=== PATIENT | female | born 1950 | race Hispanic/Latino ===

== ENCOUNTER 2020-08-03 15:52 | Inpatient (IN) | payer OTHER ==
[~2020-08-03] VITALS: Ht 157.5 cm; Wt 102.5 kg
[2020-08-03 16:18] LABS: ABG BASE EXCESS -3.2 mmol/L (-2.0-3.0); ABG HCO3 19.7 mmol/L (21.0-28.0); ABG OXYGEN SATURATION 74.4 % (95.0-99.0); ABG PCO2 30 mmHg (32-45)
[2020-08-03 16:28] LABS: BASOPHILS % (AUTO) 0.3 % (0.0-5.0); HEMATOCRIT 34.4 % (36-48); LYMPHOCYTES % (AUTO) 5.5 % (21.0-51.0); MEAN CORPUSCULAR HGB CONC 31.1 g/dL (32.0-36.0); MEAN CORPUSCULAR VOLUME 83.5 fL (79-99); MONOCYTES % (AUTO) 5.8 % (3.0-13.0); NEUTROPHILS % (AUTO) 87.8 % (40.0-77.0); PLATELET COUNT (AUTO) 271 K/uL (130-400); RED BLOOD CELL COUNT(AUTO) 4.12 MIL/uL (4.00-5.50); RED CELL DISTRIBUTION WIDTH 15.7 % (11.0-15.5); WHITE BLOOD COUNT (AUTO) 13.6 K/uL (4.8-10.8)
[2020-08-03 16:42] LABS: PROTHROMBIN TIME 10.7 SEC (9.6-11.6)
[2020-08-03 16:43] LABS: PARTIAL THROMBOPLASTIN TIME 26.4 SEC (26.3-35.5)
[2020-08-03 17:06] LABS: ALBUMIN 3.2 g/dL (3.5-5.0); CREATININE 1.1 mg/dL (0.5-1.5); POTASSIUM 4.2 mmol/L (3.5-5.1); TOTAL PROTEIN, SERUM 8.1 g/dL (6.0-8.3)
[2020-08-03 17:09] LABS: TROPONIN I 0.94 ng/mL (0.00-0.06)
[2020-08-03 17:49] LABS: ERYTHROCYTE SEDIMENTATION RATE 95 MM/HR (0-30)
[2020-08-03] MEDS ORDERED: FUROSEMIDE 10 MG/ML 2ML VIAL ONE (18:17)
[2020-08-03] MEDS ORDERED: INSULIN HUMULIN R 100 UNIT/ML 3ML ONE (18:18)
[2020-08-03] MEDS ORDERED: AZITHROMYCIN 500MG+NS 250ML 250 ML IV ONE (19:10)
[2020-08-03] MEDS ORDERED: CEFTRIAXONE SODIUM 1 GM ONE (19:10)
[2020-08-03 19:22] LABS: APPEARANCE,URINE Clear (CLEAR); BILIRUBIN,URINE Negative (NEGATIVE); COLOR,URINE Yellow (YELLOW); GLUCOSE, URINE (UA) >=1000 mg/dL (NEGATIVE); KETONES,URINE 40 mg/dL (NEGATIVE); LEUKOCYTE ESTERASE ,URINE Negative (NEGATIVE); NITRATE,URINE Negative (NEGATIVE); OCCULT BLOOD,URINE Trace (NEGATIVE); PROTEIN,URINE POS 2+ mg/dL (NEGATIVE); UROBILINOGEN,URINE 0.2 mg/dL (0.2-1.0)
[2020-08-03 19:31] LABS: BACTERIA,URINE Few /HPF (None Seen); RBC,URINE 0-1 /HPF (0-1); SQUAMOUS EPITHELIAL CELL,UR Few /HPF (0-2); WBC,URINE 0-1 /HPF (0-1)
[2020-08-03 23:50] LABS: TROPONIN I 1.15 ng/mL (0.00-0.06)
[2020-08-04 07:42] LABS: BASOPHILS % (AUTO) 0.4 % (0.0-5.0); EOSINOPHILS % (AUTO) 2.1 % (0.0-8.0); HEMATOCRIT 30.7 % (36-48); LYMPHOCYTES % (AUTO) 8.5 % (21.0-51.0); MEAN CORPUSCULAR HEMOGLOBIN 25.9 pg (27.0-33.0); MEAN CORPUSCULAR HGB CONC 30.9 g/dL (32.0-36.0); MEAN CORPUSCULAR VOLUME 83.7 fL (79-99); MONOCYTES % (AUTO) 6.7 % (3.0-13.0); NEUTROPHILS % (AUTO) 81.9 % (40.0-77.0); PLATELET COUNT (AUTO) 253 K/uL (130-400); RED BLOOD CELL COUNT(AUTO) 3.67 MIL/uL (4.00-5.50); RED CELL DISTRIBUTION WIDTH 15.6 % (11.0-15.5); WHITE BLOOD COUNT (AUTO) 12.2 K/uL (4.8-10.8)
[2020-08-04 08:10] LABS: ALBUMIN 2.5 g/dL (3.5-5.0); BILIRUBIN,TOTAL 0.6 mg/dL (0.2-1.0); CREATININE 0.9 mg/dL (0.5-1.5); POTASSIUM 3.7 mmol/L (3.5-5.1); TOTAL PROTEIN, SERUM 7.1 g/dL (6.0-8.3)
[2020-08-04 08:12] LABS: MAGNESIUM 2.1 mg/dL (1.80-2.40)
[2020-08-04] MEDS ORDERED: INSULIN HUMULIN R 100 UNIT/ML 3ML ONE ×2 (08:29→17:51)
[2020-08-04 08:30] LABS: TROPONIN I 0.99 ng/mL (0.00-0.06)
[2020-08-04] MEDS ORDERED: ACETAMINOPHEN 325 MG TAB ONE (16:37)
[2020-08-04 21:40] VITALS: BP 142/87
[2020-08-04] MEDS ORDERED: LISI-613 PO (22:36)
[2020-08-04] MEDS ORDERED: AEC81 PO (22:36)
[2020-08-04] MEDS ORDERED: LEVO750T46 PO (22:36)
[2020-08-04] MEDS ORDERED: LOSA100T58 PO (22:36)
[2020-08-04] MEDS ORDERED: ESCI20TA36 PO (22:36)
[2020-08-04] MEDS ORDERED: SUCR1TAB2 PO (22:36)
[2020-08-04] MEDS ORDERED: INSLAN SQ (22:36)
[2020-08-04] MEDS ORDERED: HYDR-4153 PO (22:36)
[2020-08-04] MEDS ORDERED: AMLO2.5T4 PO (22:36)
[2020-08-04] MEDS ORDERED: GABA300C PO (22:36)
[2020-08-04] MEDS ORDERED: METF750T46 PO (22:36)
[2020-08-04] MEDS ORDERED: AMLO-257 PO (22:36)
[2020-08-04] MEDS ORDERED: PRAV20TA4 PO (22:36)
[2020-08-04] MEDS ORDERED: CLOP75TA32 PO (22:36)
[2020-08-05 04:09] VITALS: BP_SYST 125; BP_SYST 154; BP_DIAS 64; BP_DIAS 91
[2020-08-05 08:36] VITALS: BP 169/100
[2020-08-05] MEDS: LOSARTAN 100 MG TABLET PO SCH (08:59)
[2020-08-05] MEDS: SUCRALFATE 1 GM TABLET PO SCH ×3 (08:59→23:48)
[2020-08-05] MEDS ORDERED: ENOXAPARIN SODIUM 30 MG/0.3 ML SQ SCH (09:00)
[2020-08-05] MEDS ORDERED: AMLODIPINE BESYLATE 2.5 MG TAB PO SCH (09:00)
[2020-08-05] MEDS: ASPIRIN 81 MG EC TAB PO SCH (09:00)
[2020-08-05] MEDS: GABAPENTIN 300 MG CAPSULE PO SCH ×3 (09:00→23:48)
[2020-08-05] MEDS: CLOPIDOGREL BISULFATE 75 MG TAB PO SCH (09:00)
[2020-08-05] MEDS: FUROSEMIDE 10 MG/ML 4ML VIAL IVP SCH (09:01)
[2020-08-05] MEDS: HYDRALAZINE HCL 25 MG TABLET PO SCH ×4 (09:01→23:52)
[2020-08-05] MEDS: LISINOPRIL 20 MG TABLET PO SCH ×2 (09:31→23:47)
[2020-08-05 11:27] VITALS: BP 135/79
[2020-08-05] MEDS: INSULIN HUMULIN R 100 UNIT/ML 3ML SQ SCH ×3 (14:30→23:27)
[2020-08-05] MEDS ORDERED: IOHEXOL-350 75 ML VIAL IV ONE (15:26)
[2020-08-05 16:00] VITALS: BP 144/67
[2020-08-05 20:05] VITALS: BP 133/61
[2020-08-05] MEDS ORDERED: ENOXAPARIN SODIUM 1 MG/KG SQ SCH (21:00)
[2020-08-05] MEDS: INSULIN GLARGINE 100 UNITS/ML 10 ML VIAL SQ SCH (23:29)
[2020-08-05] MEDS: ZOSYN 3.375GM+NS 50ML 50 ML IV SCH (23:31)
[2020-08-05] MEDS: METOPROLOL TARTRATE 25 MG TAB PO SCH (23:47)
[2020-08-05] MEDS: ENOXAPARIN SODIUM 100 MG/1 ML SQ SCH (23:48)
[2020-08-05] MEDS: ACETAMINOPHEN 325 MG TAB PO PRN (23:53)
[2020-08-06] VITALS (7 sets, daily range): BP systolic 102–145; BP diastolic 49–80
[2020-08-06] MEDS: IPRATROPIUM/ALBUTEROL SULFATE 3 ML SOLUTION IH SCH ×4 (00:58→18:12)
[2020-08-06 02:30] LABS: ABG BASE EXCESS 0.7 mmol/L (-2.0-3.0); ABG HCO3 25.1 mmol/L (21.0-28.0); ABG OXYGEN SATURATION 94.4 % (95.0-99.0); ABG PCO2 40 mmHg (32-45)
[2020-08-06 05:29] LABS: HEMATOCRIT 28.3 % (36-48); MEAN CORPUSCULAR HGB CONC 31.1 g/dL (32.0-36.0); MEAN CORPUSCULAR VOLUME 83.7 fL (79-99); RED BLOOD CELL COUNT(AUTO) 3.38 MIL/uL (4.00-5.50); RED CELL DISTRIBUTION WIDTH 15.4 % (11.0-15.5); WHITE BLOOD COUNT (AUTO) 6.6 K/uL (4.8-10.8)
[2020-08-06] MEDS: ZOSYN 3.375GM+NS 50ML 50 ML IV SCH ×3 (05:48→21:11)
[2020-08-06 05:57] LABS: ALBUMIN 2.3 g/dL (3.5-5.0); BILIRUBIN,TOTAL 0.5 mg/dL (0.2-1.0); CREATININE 1.2 mg/dL (0.5-1.5); MAGNESIUM 1.9 mg/dL (1.80-2.40); POTASSIUM 3.5 mmol/L (3.5-5.1); TOTAL PROTEIN, SERUM 6.5 g/dL (6.0-8.3)
[2020-08-06] MEDS: INSULIN HUMULIN R 100 UNIT/ML 3ML SQ SCH ×4 (06:04→21:24)
[2020-08-06] MEDS: SUCRALFATE 1 GM TABLET PO SCH ×3 (09:00→21:05)
[2020-08-06] MEDS: HYDRALAZINE HCL 25 MG TABLET PO SCH ×4 (09:00→21:04)
[2020-08-06] MEDS: GABAPENTIN 300 MG CAPSULE PO SCH ×3 (09:00→21:05)
[2020-08-06] MEDS: CLOPIDOGREL BISULFATE 75 MG TAB PO SCH (09:00)
[2020-08-06] MEDS: ASPIRIN 81 MG EC TAB PO SCH (09:00)
[2020-08-06] MEDS: ENOXAPARIN SODIUM 100 MG/1 ML SQ SCH ×2 (09:00→21:09)
[2020-08-06] MEDS: LOSARTAN 100 MG TABLET PO SCH (10:04)
[2020-08-06] MEDS: LISINOPRIL 20 MG TABLET PO SCH ×2 (10:04→21:06)
[2020-08-06] MEDS: METOPROLOL TARTRATE 25 MG TAB PO SCH ×2 (10:04→21:04)
[2020-08-06] MEDS: FUROSEMIDE 10 MG/ML 4ML VIAL IVP SCH (10:04)
[2020-08-06] MEDS ORDERED: REGADENOSON 0.4 MG/5 ML PF SYG IVP SCH (12:45)
[2020-08-06] MEDS: INSULIN GLARGINE 100 UNITS/ML 10 ML VIAL SQ SCH (21:25)
[2020-08-07] VITALS (12 sets, daily range): BP systolic 128–182; BP diastolic 70–126
[2020-08-07] MEDS: IPRATROPIUM/ALBUTEROL SULFATE 3 ML SOLUTION IH SCH ×5 (00:35→23:11)
[2020-08-07] MEDS: ACETAMINOPHEN 325 MG TAB PO PRN (03:23)
[2020-08-07] MEDS: ZOSYN 3.375GM+NS 50ML 50 ML IV SCH ×3 (05:27→21:53)
[2020-08-07 05:35] LABS: HEMATOCRIT 27.9 % (36-48); MEAN CORPUSCULAR HEMOGLOBIN 26.3 pg (27.0-33.0); MEAN CORPUSCULAR HGB CONC 31.5 g/dL (32.0-36.0); MEAN CORPUSCULAR VOLUME 83.3 fL (79-99); RED BLOOD CELL COUNT(AUTO) 3.35 MIL/uL (4.00-5.50); RED CELL DISTRIBUTION WIDTH 15.2 % (11.0-15.5); WHITE BLOOD COUNT (AUTO) 7.1 K/uL (4.8-10.8)
[2020-08-07 06:07] LABS: CREATININE 1.1 mg/dL (0.5-1.5); MAGNESIUM 2.2 mg/dL (1.80-2.40); POTASSIUM 3.2 mmol/L (3.5-5.1)
[2020-08-07 06:16] LABS: INR 0.98 (0.85-1.15); PARTIAL THROMBOPLASTIN TIME 29.8 SEC (26.3-35.5); PROTHROMBIN TIME 10.5 SEC (9.6-11.6)
[2020-08-07] MEDS: INSULIN HUMULIN R 100 UNIT/ML 3ML SQ SCH ×4 (08:11→21:00)
[2020-08-07] MEDS: GABAPENTIN 300 MG CAPSULE PO SCH ×3 (09:00→21:52)
[2020-08-07] MEDS ORDERED: POTASSIUM CHLORIDE 10% ELIXIR 20 MEQ/15 ML UDCUP PO PRN (09:00)
[2020-08-07] MEDS ORDERED: POTASSIUM CHLORIDE 20MEQ/100ML 100 ML IV PRN (09:00)
[2020-08-07] MEDS ORDERED: LIDOCAINE HCL-MPF 1% 2ML VIAL IJ PRN (09:00)
[2020-08-07] MEDS ORDERED: POTASSIUM CHLORIDE 20 MEQ ERTAB PO PRN (09:00)
[2020-08-07] MEDS: ENOXAPARIN SODIUM 100 MG/1 ML SQ SCH (09:00)
[2020-08-07] MEDS: SUCRALFATE 1 GM TABLET PO SCH ×3 (09:00→21:52)
[2020-08-07] MEDS ORDERED: POTASSIUM CHLORIDE 20 MEQ ERTAB PO ONE (09:48)
[2020-08-07] MEDS: LISINOPRIL 20 MG TABLET PO SCH ×2 (09:57→21:52)
[2020-08-07] MEDS: ASPIRIN 81 MG EC TAB PO SCH (09:57)
[2020-08-07] MEDS: FUROSEMIDE 10 MG/ML 4ML VIAL IVP SCH (09:57)
[2020-08-07] MEDS: CLOPIDOGREL BISULFATE 75 MG TAB PO SCH (09:58)
[2020-08-07] MEDS: HYDRALAZINE HCL 25 MG TABLET PO SCH ×4 (09:58→21:53)
[2020-08-07] MEDS: METOPROLOL TARTRATE 25 MG TAB PO SCH ×2 (09:58→21:53)
[2020-08-07] MEDS ORDERED: BIVALIRUDIN 250 MG/VIAL IV ONE (13:56)
[2020-08-07] MEDS ORDERED: IOHEXOL-350 50ML VIAL IV ONE (13:56)
[2020-08-07] MEDS ORDERED: NITROGLYCERIN 2 MG/VIAL VIAL IV ONE (13:56)
[2020-08-07] MEDS ORDERED: IOHEXOL 350 MG/ML 100ML INFUS..BTL IV ONE ×2 (13:56→15:51)
[2020-08-07] MEDS ORDERED: MIDAZOLAM HCL 1 MG/ML 2ML VIAL ONE (13:56)
[2020-08-07] MEDS ORDERED: HEPARIN SODIUM 1000UNIT/ML 10ML VIAL ONE (13:56)
[2020-08-07] MEDS ORDERED: FENTANYL CITRATE PF 50 MCG/1 ML 2ML VIAL ONE (13:56)
[2020-08-07] MEDS ORDERED: LIDOCAINE HCL 2% 20ML ONE (13:57)
[2020-08-07] MEDS ORDERED: TICAGRELOR 90 MG TABLET ONE (16:09)
[2020-08-07] MEDS ORDERED: METOPROLOL TARTRATE 1 MG/ML 5ML VIAL IV ONE (16:25)
[2020-08-07] MEDS ORDERED: SODIUM CHLORIDE 0.9% 1000ML 1,000 ML IV SCH (16:30)
[2020-08-07] MEDS: LOSARTAN 100 MG TABLET PO SCH (18:24)
[2020-08-07] MEDS: ATORVASTATIN CALCIUM 40 MG TABLET PO SCH (21:53)
[2020-08-07] MEDS: INSULIN GLARGINE 100 UNITS/ML 10 ML VIAL SQ SCH (22:09)
[2020-08-08] MEDS: ACETAMINOPHEN 325 MG TAB PO PRN ×2 (01:59→18:32)
[2020-08-08 03:35] VITALS: BP 145/69
[2020-08-08] MEDS: ZOSYN 3.375GM+NS 50ML 50 ML IV SCH ×3 (05:10→21:23)
[2020-08-08 05:27] LABS: HEMATOCRIT 28.9 % (36-48); MEAN CORPUSCULAR HEMOGLOBIN 25.9 pg (27.0-33.0); MEAN CORPUSCULAR HGB CONC 31.1 g/dL (32.0-36.0); MEAN CORPUSCULAR VOLUME 83.3 fL (79-99); RED BLOOD CELL COUNT(AUTO) 3.47 MIL/uL (4.00-5.50); RED CELL DISTRIBUTION WIDTH 15.4 % (11.0-15.5); WHITE BLOOD COUNT (AUTO) 9.3 K/uL (4.8-10.8)
[2020-08-08 05:55] LABS: POTASSIUM 3.8 mmol/L (3.5-5.1)
[2020-08-08] MEDS: INSULIN HUMULIN R 100 UNIT/ML 3ML SQ SCH ×4 (06:21→20:24)
[2020-08-08] MEDS: IPRATROPIUM/ALBUTEROL SULFATE 3 ML SOLUTION IH SCH ×3 (06:25→19:04)
[2020-08-08 08:00] VITALS: BP 149/82
[2020-08-08] MEDS: HYDRALAZINE HCL 25 MG TABLET PO SCH ×4 (09:08→21:22)
[2020-08-08] MEDS: GABAPENTIN 300 MG CAPSULE PO SCH ×3 (09:08→21:22)
[2020-08-08] MEDS: METOPROLOL TARTRATE 25 MG TAB PO SCH ×2 (09:08→21:22)
[2020-08-08] MEDS: SUCRALFATE 1 GM TABLET PO SCH ×3 (09:08→21:22)
[2020-08-08] MEDS: CLOPIDOGREL BISULFATE 75 MG TAB PO SCH (09:08)
[2020-08-08] MEDS: LISINOPRIL 20 MG TABLET PO SCH ×2 (09:08→21:22)
[2020-08-08] MEDS: ASPIRIN 81 MG EC TAB PO SCH (09:09)
[2020-08-08] MEDS: LOSARTAN 100 MG TABLET PO SCH (09:09)
[2020-08-08] MEDS: FUROSEMIDE 10 MG/ML 4ML VIAL IVP SCH (09:09)
[2020-08-08 11:32] VITALS: BP 162/80
[2020-08-08 16:12] VITALS: BP 181/85
[2020-08-08 20:00] VITALS: BP 107/73
[2020-08-08 21:20] VITALS: BP 161/85
[2020-08-08] MEDS: ATORVASTATIN CALCIUM 40 MG TABLET PO SCH (21:22)
[2020-08-08] MEDS: INSULIN GLARGINE 100 UNITS/ML 10 ML VIAL SQ SCH (21:25)
[2020-08-09] VITALS: BP 129/74
[2020-08-09] MEDS: IPRATROPIUM/ALBUTEROL SULFATE 3 ML SOLUTION IH SCH ×4 (00:28→18:15)
[2020-08-09 04:00] VITALS: BP 112/57
[2020-08-09] MEDS: ZOSYN 3.375GM+NS 50ML 50 ML IV SCH ×3 (05:47→20:47)
[2020-08-09] MEDS: INSULIN HUMULIN R 100 UNIT/ML 3ML SQ SCH ×4 (07:20→20:45)
[2020-08-09] MEDS: ASPIRIN 81 MG EC TAB PO SCH (07:50)
[2020-08-09] MEDS: METOPROLOL TARTRATE 25 MG TAB PO SCH ×2 (07:50→20:46)
[2020-08-09] MEDS: SUCRALFATE 1 GM TABLET PO SCH ×3 (07:50→14:01)
[2020-08-09] MEDS: LOSARTAN 100 MG TABLET PO SCH (07:50)
[2020-08-09] MEDS: CLOPIDOGREL BISULFATE 75 MG TAB PO SCH (07:50)
[2020-08-09] MEDS: GABAPENTIN 300 MG CAPSULE PO SCH ×3 (07:50→20:47)
[2020-08-09] MEDS: LISINOPRIL 20 MG TABLET PO SCH ×2 (07:50→20:46)
[2020-08-09 07:51] VITALS: BP 165/101
[2020-08-09] MEDS: HYDRALAZINE HCL 25 MG TABLET PO SCH ×4 (07:51→20:46)
[2020-08-09] MEDS: FUROSEMIDE 10 MG/ML 4ML VIAL IVP SCH (07:51)
[2020-08-09 11:09] VITALS: BP 132/79
[2020-08-09] MEDS: ACETAMINOPHEN 325 MG TAB PO PRN (11:59)
[2020-08-09 15:52] VITALS: BP 135/89
[2020-08-09] MEDS: ATORVASTATIN CALCIUM 40 MG TABLET PO SCH (20:47)
[2020-08-09 20:48] VITALS: BP 132/72
[2020-08-09] MEDS: INSULIN GLARGINE 100 UNITS/ML 10 ML VIAL SQ SCH (20:48)
[2020-08-10] VITALS (7 sets, daily range): BP systolic 96–170; BP diastolic 50–95
[2020-08-10] MEDS: IPRATROPIUM/ALBUTEROL SULFATE 3 ML SOLUTION IH SCH ×4 (00:02→19:35)
[2020-08-10] MEDS: ZOSYN 3.375GM+NS 50ML 50 ML IV SCH ×3 (05:12→20:39)
[2020-08-10] MEDS: INSULIN HUMULIN R 100 UNIT/ML 3ML SQ SCH ×4 (05:34→20:48)
[2020-08-10 05:57] LABS: HEMATOCRIT 30.5 % (36-48); MEAN CORPUSCULAR HEMOGLOBIN 25.8 pg (27.0-33.0); MEAN CORPUSCULAR HGB CONC 30.2 g/dL (32.0-36.0); MEAN CORPUSCULAR VOLUME 85.4 fL (79-99); RED BLOOD CELL COUNT(AUTO) 3.57 MIL/uL (4.00-5.50); RED CELL DISTRIBUTION WIDTH 15.4 % (11.0-15.5); WHITE BLOOD COUNT (AUTO) 7.4 K/uL (4.8-10.8)
[2020-08-10 06:18] LABS: CREATININE 1.1 mg/dL (0.5-1.5); MAGNESIUM 2.1 mg/dL (1.80-2.40); POTASSIUM 3.6 mmol/L (3.5-5.1)
[2020-08-10] MEDS: FUROSEMIDE 10 MG/ML 4ML VIAL IVP SCH (08:59)
[2020-08-10] MEDS: HYDRALAZINE HCL 25 MG TABLET PO SCH ×4 (08:59→20:45)
[2020-08-10] MEDS: ASPIRIN 81 MG EC TAB PO SCH (09:00)
[2020-08-10] MEDS: METOPROLOL TARTRATE 25 MG TAB PO SCH (09:00)
[2020-08-10] MEDS: GABAPENTIN 300 MG CAPSULE PO SCH ×3 (09:00→20:45)
[2020-08-10] MEDS: CLOPIDOGREL BISULFATE 75 MG TAB PO SCH (09:00)
[2020-08-10] MEDS: SUCRALFATE 1 GM TABLET PO SCH ×3 (09:01→20:44)
[2020-08-10] MEDS: LISINOPRIL 20 MG TABLET PO SCH ×2 (09:01→13:33)
[2020-08-10] MEDS: LOSARTAN 100 MG TABLET PO SCH (09:01)
[2020-08-10] MEDS ORDERED: ONDANSETRON HCL 4 MG/2 ML VIAL ONE (09:45)
[2020-08-10] MEDS: PANTOPRAZOLE SODIUM 40 MG TABLET.DR PO SCH (13:33)
[2020-08-10] MEDS: ATORVASTATIN CALCIUM 40 MG TABLET PO SCH (20:40)
[2020-08-10] MEDS: CARVEDILOL 12.5 MG TABLET PO SCH (20:41)
[2020-08-10] MEDS: INSULIN GLARGINE 100 UNITS/ML 10 ML VIAL SQ SCH (20:47)
[2020-08-10] MEDS: ACETAMINOPHEN 325 MG TAB PO PRN (23:38)
[2020-08-11] MEDS: IPRATROPIUM/ALBUTEROL SULFATE 3 ML SOLUTION IH SCH ×3 (00:23→11:05)
[2020-08-11] MEDS: ZOSYN 3.375GM+NS 50ML 50 ML IV SCH ×2 (04:19→15:05)
[2020-08-11 05:04] VITALS: BP 126/78
[2020-08-11] MEDS: INSULIN HUMULIN R 100 UNIT/ML 3ML SQ SCH ×3 (05:47→16:44)
[2020-08-11 07:48] VITALS: BP 137/86
[2020-08-11] MEDS: ACETAMINOPHEN 325 MG TAB PO PRN (08:49)
[2020-08-11] MEDS: SUCRALFATE 1 GM TABLET PO SCH ×2 (08:49→15:04)
[2020-08-11] MEDS: ASPIRIN 81 MG EC TAB PO SCH (08:50)
[2020-08-11] MEDS: LISINOPRIL 20 MG TABLET PO SCH (08:50)
[2020-08-11] MEDS: PANTOPRAZOLE SODIUM 40 MG TABLET.DR PO SCH (08:51)
[2020-08-11] MEDS: CARVEDILOL 12.5 MG TABLET PO SCH (08:51)
[2020-08-11] MEDS: GABAPENTIN 300 MG CAPSULE PO SCH ×2 (08:52→15:04)
[2020-08-11] MEDS: CLOPIDOGREL BISULFATE 75 MG TAB PO SCH (08:52)
[2020-08-11] MEDS ORDERED: LISINOPRIL 40 MG TABLET PO SCH (09:00)
[2020-08-11] MEDS ORDERED: ISOSORBIDE DINITRATE 10 MG TABLET PO SCH (09:00)
[2020-08-11 12:00] VITALS: BP 135/72
[2020-08-11] MEDS: HYDRALAZINE HCL 25 MG TABLET PO SCH (15:05)
[2020-08-11 16:00] VITALS: BP 113/66
== END 2020-08-11 17:20 | DRG 246 ==
LOC: EDH 15:52 → EDHIP 19:04 → 4CH 08-04 21:27 → 4DH 08-05 12:00
PROVIDERS: ADMIT Internal Medicine Infectious Disease; ATTEND Internal Medicine Infectious Disease
PROC: 5A09357 Assistance with Respiratory Ventilation, Less than 24 Consecutive Hours, Continuous Positive Airway Pressure (ICD-10-PCS; 2020-08-06)
PROC: 027135Z Dilation of Coronary Artery, Two Arteries with Two Drug-eluting Intraluminal Devices, Percutaneous Approach (ICD-10-PCS; principal; 2020-08-07)
PROC: 4A023N7 Measurement of Cardiac Sampling and Pressure, Left Heart, Percutaneous Approach (ICD-10-PCS; 2020-08-07)
PROC: B2111ZZ Fluoroscopy of Multiple Coronary Arteries using Low Osmolar Contrast (ICD-10-PCS; 2020-08-07)
PROC: B2151ZZ Fluoroscopy of Left Heart using Low Osmolar Contrast (ICD-10-PCS; 2020-08-07)
PROC: B41F1ZZ Fluoroscopy of Right Lower Extremity Arteries using Low Osmolar Contrast (ICD-10-PCS; 2020-08-07)
PROC: 5A09357 Assistance with Respiratory Ventilation, Less than 24 Consecutive Hours, Continuous Positive Airway Pressure (ICD-10-PCS; 2020-08-08)
PROC: 5A09357 Assistance with Respiratory Ventilation, Less than 24 Consecutive Hours, Continuous Positive Airway Pressure (ICD-10-PCS; 2020-08-09)
PROC: 5A09357 Assistance with Respiratory Ventilation, Less than 24 Consecutive Hours, Continuous Positive Airway Pressure (ICD-10-PCS; 2020-08-10)
DX: I21.4 Non-ST elevation (NSTEMI) myocardial infarction (principal); J18.9 Pneumonia, unspecified organism; J96.91 Respiratory failure, unspecified with hypoxia; I50.33 Acute on chronic diastolic (congestive) heart failure; Z68.41 Body mass index [BMI] 40.0-44.9, adult; E87.1 Hypo-osmolality and hyponatremia; I11.0 Hypertensive heart disease with heart failure; E11.65 Type 2 diabetes mellitus with hyperglycemia; E66.9 Obesity, unspecified; E03.9 Hypothyroidism, unspecified; E66.01 Morbid (severe) obesity due to excess calories; E78.5 Hyperlipidemia, unspecified; E86.0 Dehydration; G47.33 Obstructive sleep apnea (adult) (pediatric); M79.604 Pain in right leg; M79.605 Pain in left leg; R53.81 Other malaise; I25.118 Atherosclerotic heart disease of native coronary artery with other forms of angina pectoris; M81.0 Age-related osteoporosis without current pathological fracture; Z20.828 Contact with and (suspected) exposure to other viral communicable diseases; Z91.19 Patient's noncompliance with other medical treatment and regimen; Z90.710 Acquired absence of both cervix and uterus; Z87.11 Personal history of peptic ulcer disease; Z83.3 Family history of diabetes mellitus; Z82.49 Family history of ischemic heart disease and other diseases of the circulatory system; I25.2 Old myocardial infarction; Z87.440 Personal history of urinary (tract) infections
CPT/HCPCS: 36415; 36600; 71045; 71275; 78452; 80048; 80053; 81001; 82550; 82728; 82803; 82948; 83605; 83615; 83735; 83874; 83880; 84145; 84484; 85025; 85027; 85378; 85610; 85651; 85730; 86140; 86900; 86901; 87040; 87088; 87426; 87804; 92610; 93005; 93017; 93306; 93356; 93458; 93970; 94640; 94660; 94664; 94667; 94668; 96374; 97039; 99156; 99157; A9500; C1760; C1887; C1894; C9600; G0378; J0456; J0583; J0696; J1644; J1650; J1815; J1940; J2250; J2405; J2543; J2785; J3010; J3490; Q9967; U0003

== ENCOUNTER 2020-10-17 03:31 | Inpatient (IN) | payer OTHER ==
[~2020-10-17] VITALS: Ht 160 cm; Wt 103.9 kg
[~2020-10-17 03:31] MED LIST: AEC81 PO; AMLO-257 PO; AMLO2.5T4 PO; CLOP75TA32 PO; ESCI20TA38 PO; GABA300C PO; HYDR-4153 PO; INSLAN SQ; LEVO750T46 PO; LISI20TA24 PO; LOSA100T58 PO; METF750T46 PO; PRAV20TA4 PO; SUCR1TAB2 PO
[2020-10-17 04:13] LABS: BASOPHILS % (AUTO) 0.6 % (0.0-5.0); EOSINOPHILS % (AUTO) 2.8 % (0.0-8.0); HEMATOCRIT 29.5 % (36-48); LYMPHOCYTES % (AUTO) 21.4 % (21.0-51.0); MEAN CORPUSCULAR HEMOGLOBIN 24.7 pg (27.0-33.0); MEAN CORPUSCULAR HGB CONC 29.8 g/dL (32.0-36.0); MEAN CORPUSCULAR VOLUME 82.9 fL (79-99); MONOCYTES % (AUTO) 9.2 % (3.0-13.0); NEUTROPHILS % (AUTO) 65.3 % (40.0-77.0); PLATELET COUNT (AUTO) 300 K/uL (130-400); RED BLOOD CELL COUNT(AUTO) 3.56 MIL/uL (4.00-5.50); WHITE BLOOD COUNT (AUTO) 8.2 K/uL (4.8-10.8)
[2020-10-17 04:23] LABS: INR 1.02 (0.85-1.15); PROTHROMBIN TIME 11.1 SEC (9.6-11.6)
[2020-10-17 04:24] LABS: PARTIAL THROMBOPLASTIN TIME 24.6 SEC (26.3-35.5)
[2020-10-17 04:28] LABS: BILIRUBIN,TOTAL 0.4 mg/dL (0.2-1.0); POTASSIUM 3.9 mmol/L (3.5-5.1); TOTAL PROTEIN, SERUM 6.9 g/dL (6.0-8.3)
[2020-10-17 04:43] LABS: B-TYPE NATRIURETIC PEPTIDE 260 pg/mL (0-100)
[2020-10-17] MEDS ORDERED: ONDANSETRON 4MG INJ ONE (05:48)
[2020-10-17] MEDS ORDERED: HYDROMORPHONE 0.5 MG SYG (0.5MG/0.5ML) ONE (05:49)
[2020-10-17] MEDS ORDERED: INSULIN HUMULIN R 100 UNIT/ML 3ML ONE (06:35)
[2020-10-17] MEDS ORDERED: ENOXAPARIN SODIUM 30 MG/0.3 ML SQ ONE (09:57)
[2020-10-17] MEDS ORDERED: LEVOFLOXACIN 750 MG/D5W 150 ML 150 ML ONE (09:57)
[2020-10-17 11:00] VITALS: BP 145/75
[2020-10-17 16:00] VITALS: BP 161/96
[2020-10-17] MEDS ORDERED: ACETAMINOPHEN 325 MG TAB ONE (17:22)
[2020-10-17] MEDS: ACETAMINOPHEN 325 MG TAB PO PRN ×2 (17:55→20:49)
[2020-10-17] MEDS ORDERED: DEXTROSE 50%-WATER 50 ML DISP.SYRIN IV PRN (18:15)
[2020-10-17] MEDS ORDERED: GLUCAGON 1MG KIT 1 MG ML IM PRN (18:15)
[2020-10-17 20:13] VITALS: BP 160/86
[2020-10-17] MEDS ORDERED: HYDROCODONE/ACETAMINOPHEN 5/325 MG TAB PO PRN (21:00)
[2020-10-17] MEDS: GABAPENTIN 300 MG CAPSULE PO SCH (22:53)
[2020-10-17] MEDS: LISINOPRIL 20 MG TABLET PO SCH (22:53)
[2020-10-17] MEDS: HYDRALAZINE 25MG TABLET PO SCH (22:53)
[2020-10-17] MEDS: SUCRALFATE 1 GM TABLET PO SCH (22:53)
[2020-10-17 23:16] VITALS: BP 145/68
[2020-10-18] VITALS (7 sets, daily range): BP systolic 130–171; BP diastolic 57–97
[2020-10-18 05:52] LABS: HEMATOCRIT 27.1 % (36-48); MEAN CORPUSCULAR HEMOGLOBIN 25.1 pg (27.0-33.0); MEAN CORPUSCULAR HGB CONC 29.9 g/dL (32.0-36.0); MEAN CORPUSCULAR VOLUME 83.9 fL (79-99); RED BLOOD CELL COUNT(AUTO) 3.23 MIL/uL (4.00-5.50); RED CELL DISTRIBUTION WIDTH 17.8 % (11.0-15.5); WHITE BLOOD COUNT (AUTO) 7.2 K/uL (4.8-10.8)
[2020-10-18 06:09] LABS: CREATININE 0.9 mg/dL (0.5-1.5); POTASSIUM 4.3 mmol/L (3.5-5.1)
[2020-10-18] MEDS: ASPIRIN 81 MG EC TAB PO SCH (08:35)
[2020-10-18] MEDS: LISINOPRIL 20 MG TABLET PO SCH ×2 (08:36→21:06)
[2020-10-18] MEDS: CLOPIDOGREL 75MG TAB PO SCH (08:36)
[2020-10-18] MEDS: GABAPENTIN 300 MG CAPSULE PO SCH (08:36)
[2020-10-18] MEDS: AMLODIPINE 5 MG TAB PO SCH (08:37)
[2020-10-18] MEDS: SUCRALFATE 1 GM TABLET PO SCH ×3 (08:37→21:06)
[2020-10-18] MEDS: METFORMIN HCL 500 MG TAB.SR.24H PO SCH ×2 (08:38→17:03)
[2020-10-18] MEDS: CITALOPRAM 20 MG TABLET PO SCH (08:40)
[2020-10-18] MEDS: ENOXAPARIN SODIUM 30 MG/0.3 ML SQ SCH (08:42)
[2020-10-18] MEDS ORDERED: LOSARTAN 100 MG TABLET PO SCH ×2 (09:00→13:13)
[2020-10-18] MEDS ORDERED: INSULIN GLARGINE 100 UNITS/ML 10 ML VIAL SQ SCH (11:00)
[2020-10-18] MEDS: LEVOFLOXACIN 500 MG/D5W 100 ML 100 ML IV SCH (11:56)
[2020-10-18] MEDS: PREGABALIN 25 MG CAP PO SCH ×2 (17:03→21:06)
[2020-10-18] MEDS: HYDRALAZINE 25MG TABLET PO SCH ×2 (17:04→21:06)
[2020-10-18] MEDS: INSULIN GLARGINE 100 UNITS/ML 10 ML VIAL SQ SCH (17:14)
[2020-10-18] MEDS ORDERED: LOSARTAN 100 MG TABLET ONE (20:36)
[2020-10-18] MEDS: ATORVASTATIN 10 MG TABLET PO SCH (21:06)
[2020-10-19] VITALS: BP 148/76
[2020-10-19 04:00] VITALS: BP 154/83
[2020-10-19 07:48] VITALS: BP 156/72
[2020-10-19] MEDS ORDERED: LEVOFLOXACIN 750 MG/D5W 150 ML 150 ML IV SCH (09:00)
[2020-10-19] MEDS: PREGABALIN 25 MG CAP PO SCH ×3 (09:34→21:22)
[2020-10-19] MEDS: CITALOPRAM 20 MG TABLET PO SCH (09:34)
[2020-10-19] MEDS: AMLODIPINE 5 MG TAB PO SCH (09:35)
[2020-10-19] MEDS: CLOPIDOGREL 75MG TAB PO SCH (09:35)
[2020-10-19] MEDS: LISINOPRIL 20 MG TABLET PO SCH ×2 (09:36→21:22)
[2020-10-19] MEDS: ENOXAPARIN SODIUM 30 MG/0.3 ML SQ SCH (09:36)
[2020-10-19] MEDS: HYDRALAZINE 25MG TABLET PO SCH ×4 (09:37→20:11)
[2020-10-19] MEDS: ASPIRIN 81 MG EC TAB PO SCH (09:37)
[2020-10-19] MEDS: SUCRALFATE 1 GM TABLET PO SCH ×3 (09:37→21:22)
[2020-10-19] MEDS: METFORMIN HCL 500 MG TAB.SR.24H PO SCH ×2 (09:41→18:40)
[2020-10-19] MEDS: LEVOFLOXACIN 500 MG/D5W 100 ML 100 ML IV SCH (09:44)
[2020-10-19 11:12] VITALS: BP 169/95
[2020-10-19 15:49] VITALS: BP 152/82
[2020-10-19] MEDS: INSULIN GLARGINE 100 UNITS/ML 10 ML VIAL SQ SCH (18:43)
[2020-10-19 21:07] VITALS: BP 149/74
[2020-10-19] MEDS: ATORVASTATIN 10 MG TABLET PO SCH (21:22)
[2020-10-20] MEDS: FAMOTIDINE 20MG VIAL IV SCH
[2020-10-20] MEDS ORDERED: ONDANSETRON 4MG INJ ONE (00:08)
[2020-10-20] MEDS ORDERED: FAMOTIDINE 20MG VIAL IV ONE (00:10)
[2020-10-20 00:48] VITALS: BP 155/80
[2020-10-20 05:31] LABS: BASOPHILS % (AUTO) 0.5 % (0.0-5.0); EOSINOPHILS % (AUTO) 1.7 % (0.0-8.0); HEMATOCRIT 27.8 % (36-48); LYMPHOCYTES % (AUTO) 16.9 % (21.0-51.0); MEAN CORPUSCULAR HEMOGLOBIN 25.1 pg (27.0-33.0); MEAN CORPUSCULAR HGB CONC 30.6 g/dL (32.0-36.0); MONOCYTES % (AUTO) 7.1 % (3.0-13.0); NEUTROPHILS % (AUTO) 73.2 % (40.0-77.0); PLATELET COUNT (AUTO) 260 K/uL (130-400); RED BLOOD CELL COUNT(AUTO) 3.39 MIL/uL (4.00-5.50); RED CELL DISTRIBUTION WIDTH 18.4 % (11.0-15.5); WHITE BLOOD COUNT (AUTO) 8.7 K/uL (4.8-10.8)
[2020-10-20 05:40] VITALS: BP 146/65
[2020-10-20 05:40] LABS: CREATININE 0.8 mg/dL (0.5-1.5); POTASSIUM 3.6 mmol/L (3.5-5.1)
[2020-10-20 07:00] VITALS: BP 174/91
[2020-10-20] MEDS: FAMOTIDINE 20MG TAB PO SCH ×2 (08:46→20:25)
[2020-10-20] MEDS: PREGABALIN 25 MG CAP PO SCH ×3 (08:46→20:24)
[2020-10-20] MEDS: CLOPIDOGREL 75MG TAB PO SCH (08:47)
[2020-10-20] MEDS: LISINOPRIL 20 MG TABLET PO SCH ×2 (08:47→20:23)
[2020-10-20] MEDS: METFORMIN HCL 500 MG TAB.SR.24H PO SCH ×2 (08:47→17:03)
[2020-10-20] MEDS: ASPIRIN 81 MG EC TAB PO SCH (08:47)
[2020-10-20] MEDS: CITALOPRAM 20 MG TABLET PO SCH (08:47)
[2020-10-20] MEDS: SUCRALFATE 1 GM TABLET PO SCH ×3 (08:48→20:23)
[2020-10-20] MEDS: AMLODIPINE 5 MG TAB PO SCH (08:48)
[2020-10-20] MEDS: ENOXAPARIN SODIUM 30 MG/0.3 ML SQ SCH (08:48)
[2020-10-20] MEDS: HYDRALAZINE 25MG TABLET PO SCH ×4 (08:48→20:23)
[2020-10-20 11:30] VITALS: BP 154/84
[2020-10-20] MEDS: LEVOFLOXACIN 500 MG/D5W 100 ML 100 ML IV SCH (11:40)
[2020-10-20 16:00] VITALS: BP 143/77
[2020-10-20] MEDS: INSULIN GLARGINE 100 UNITS/ML 10 ML VIAL SQ SCH (17:05)
[2020-10-20] MEDS: ATORVASTATIN 10 MG TABLET PO SCH (20:24)
[2020-10-20] MEDS: ONDANSETRON 4MG INJ IVP PRN (20:54)
[2020-10-20 22:15] VITALS: BP 125/61
[2020-10-21] VITALS (8 sets, daily range): BP systolic 110–141; BP diastolic 58–82
[2020-10-21] MEDS: FAMOTIDINE 20MG VIAL IV SCH
[2020-10-21] MEDS: ACETAMINOPHEN 325 MG TAB PO PRN (05:35)
[2020-10-21] MEDS: ONDANSETRON 4MG INJ IVP PRN (09:16)
[2020-10-21] MEDS: HYDROCODONE/ACETAMINOPHEN 5/325 MG TAB PO PRN ×2 (09:17→17:15)
[2020-10-21] MEDS: METFORMIN HCL 500 MG TAB.SR.24H PO SCH ×2 (09:17→17:12)
[2020-10-21] MEDS: SUCRALFATE 1 GM TABLET PO SCH ×3 (09:19→20:15)
[2020-10-21] MEDS: FAMOTIDINE 20MG TAB PO SCH ×2 (09:19→20:16)
[2020-10-21] MEDS: HYDRALAZINE 25MG TABLET PO SCH ×4 (09:19→22:17)
[2020-10-21] MEDS: LISINOPRIL 20 MG TABLET PO SCH ×2 (09:19→20:16)
[2020-10-21] MEDS: ASPIRIN 81 MG EC TAB PO SCH (09:19)
[2020-10-21] MEDS: AMLODIPINE 5 MG TAB PO SCH (09:19)
[2020-10-21] MEDS: PREGABALIN 25 MG CAP PO SCH ×3 (09:19→20:16)
[2020-10-21] MEDS: ENOXAPARIN SODIUM 30 MG/0.3 ML SQ SCH (09:20)
[2020-10-21] MEDS: CITALOPRAM 20 MG TABLET PO SCH (09:20)
[2020-10-21] MEDS: CLOPIDOGREL 75MG TAB PO SCH (09:20)
[2020-10-21] MEDS: LEVOFLOXACIN 500 MG/D5W 100 ML 100 ML IV SCH (13:04)
[2020-10-21] MEDS: INSULIN GLARGINE 100 UNITS/ML 10 ML VIAL SQ SCH (17:13)
[2020-10-21] MEDS: ATORVASTATIN 10 MG TABLET PO SCH (20:16)
[2020-10-22] VITALS (7 sets, daily range): BP systolic 117–137; BP diastolic 47–70
[2020-10-22] MEDS: FAMOTIDINE 20MG VIAL IV SCH
[2020-10-22] MEDS: SUCRALFATE 1 GM TABLET PO SCH ×3 (09:54→22:30)
[2020-10-22] MEDS: ONDANSETRON 4MG INJ IVP PRN ×2 (09:54→20:12)
[2020-10-22] MEDS: CITALOPRAM 20 MG TABLET PO SCH (09:55)
[2020-10-22] MEDS: PREGABALIN 25 MG CAP PO SCH ×3 (09:55→22:18)
[2020-10-22] MEDS: ASPIRIN 81 MG EC TAB PO SCH (09:55)
[2020-10-22] MEDS: FAMOTIDINE 20MG TAB PO SCH ×2 (09:55→22:21)
[2020-10-22] MEDS: AMLODIPINE 5 MG TAB PO SCH (09:56)
[2020-10-22] MEDS: CLOPIDOGREL 75MG TAB PO SCH (09:56)
[2020-10-22] MEDS: LISINOPRIL 20 MG TABLET PO SCH ×2 (09:56→22:18)
[2020-10-22] MEDS: HYDRALAZINE 25MG TABLET PO SCH ×4 (09:56→22:22)
[2020-10-22] MEDS: METFORMIN HCL 500 MG TAB.SR.24H PO SCH ×2 (09:57→17:20)
[2020-10-22] MEDS: ENOXAPARIN SODIUM 30 MG/0.3 ML SQ SCH (09:57)
[2020-10-22] MEDS: LEVOFLOXACIN 500 MG/D5W 100 ML 100 ML IV SCH (11:18)
[2020-10-22] MEDS ORDERED: HONEY 1 APPL/ML TUBE TP SCH (14:45)
[2020-10-22] MEDS: INSULIN GLARGINE 100 UNITS/ML 10 ML VIAL SQ SCH (17:22)
[2020-10-22] MEDS: ATORVASTATIN 10 MG TABLET PO SCH (22:18)
[2020-10-22] MEDS: ACETAMINOPHEN 325 MG TAB PO PRN (22:21)
[2020-10-23] MEDS: FAMOTIDINE 20MG VIAL IV SCH
[2020-10-23 04:00] VITALS: BP 132/68
[2020-10-23 05:17] LABS: BASOPHILS % (AUTO) 0.4 % (0.0-5.0); EOSINOPHILS % (AUTO) 2.3 % (0.0-8.0); HEMATOCRIT 29.4 % (36-48); LYMPHOCYTES % (AUTO) 20.3 % (21.0-51.0); MEAN CORPUSCULAR HEMOGLOBIN 24.9 pg (27.0-33.0); MEAN CORPUSCULAR HGB CONC 29.6 g/dL (32.0-36.0); MONOCYTES % (AUTO) 7.5 % (3.0-13.0); PLATELET COUNT (AUTO) 226 K/uL (130-400); RED CELL DISTRIBUTION WIDTH 19.2 % (11.0-15.5); WHITE BLOOD COUNT (AUTO) 7.7 K/uL (4.8-10.8)
[2020-10-23 05:26] LABS: CREATININE 0.9 mg/dL (0.5-1.5); POTASSIUM 3.7 mmol/L (3.5-5.1)
[2020-10-23 07:45] VITALS: BP 141/76
[2020-10-23] MEDS: HYDRALAZINE 25MG TABLET PO SCH ×3 (10:34→17:46)
[2020-10-23] MEDS: LISINOPRIL 20 MG TABLET PO SCH (10:34)
[2020-10-23] MEDS: LEVOFLOXACIN 500 MG/D5W 100 ML 100 ML IV SCH (10:34)
[2020-10-23] MEDS: FAMOTIDINE 20MG TAB PO SCH (10:35)
[2020-10-23] MEDS: SUCRALFATE 1 GM TABLET PO SCH ×2 (10:35→15:08)
[2020-10-23] MEDS: ASPIRIN 81 MG EC TAB PO SCH (10:35)
[2020-10-23] MEDS: CITALOPRAM 20 MG TABLET PO SCH (10:35)
[2020-10-23] MEDS: AMLODIPINE 5 MG TAB PO SCH (10:35)
[2020-10-23] MEDS: METFORMIN HCL 500 MG TAB.SR.24H PO SCH ×2 (10:35→17:46)
[2020-10-23] MEDS: ENOXAPARIN SODIUM 30 MG/0.3 ML SQ SCH (10:36)
[2020-10-23] MEDS: CLOPIDOGREL 75MG TAB PO SCH (10:37)
[2020-10-23] MEDS: PREGABALIN 25 MG CAP PO SCH ×2 (10:37→15:08)
[2020-10-23 11:32] VITALS: BP 147/65
[2020-10-23 16:20] VITALS: BP 141/70
[2020-10-23] MEDS: ONDANSETRON 4MG INJ IVP PRN (17:46)
[2020-10-23] MEDS: INSULIN GLARGINE 100 UNITS/ML 10 ML VIAL SQ SCH (17:58)
[2021-02-03] MEDS ORDERED: LEVO500T90 PO (15:19)
[2021-03-16] MEDS ORDERED: ATOR40TA69 PO (04:41)
[2021-03-16] MEDS ORDERED: CHOL2400 MC (04:41)
[2021-03-16] MEDS ORDERED: PANT40TA PO (04:41)
[2021-03-16] MEDS ORDERED: ISOS10TA2 PO (04:41)
[2021-03-16] MEDS ORDERED: CARV25TA PO (04:41)
[2021-03-16] MEDS ORDERED: FOLI0.8T3 PO (04:41)
[2021-03-28] MEDS ORDERED: AMLO-257 PO (10:19)
[2021-03-28] MEDS ORDERED: INSLAN SQ (10:19)
[2021-03-28] MEDS ORDERED: ISOS10TA2 PO (10:19)
[2021-03-28] MEDS ORDERED: FOLI0.8C PO (10:19)
[2021-03-28] MEDS ORDERED: INSU100V3 SQ (10:19)
[2021-03-28] MEDS ORDERED: PANT40TA54 PO (10:19)
[2021-03-28] MEDS ORDERED: ESCI-8 PO (10:19)
== END 2020-10-23 21:20 | disposition home or self-care (01) | DRG 194 ==
LOC: EDH 03:31 → EDHIP 09:40 → 3DH 10:40
PROVIDERS: ADMIT Internal Medicine; ATTEND Internal Medicine
DX: J18.9 Pneumonia, unspecified organism (principal); Z68.41 Body mass index [BMI] 40.0-44.9, adult; Y95 Nosocomial condition; I11.0 Hypertensive heart disease with heart failure; I25.5 Ischemic cardiomyopathy; E11.42 Type 2 diabetes mellitus with diabetic polyneuropathy; I25.10 Atherosclerotic heart disease of native coronary artery without angina pectoris; E03.9 Hypothyroidism, unspecified; E66.9 Obesity, unspecified; F41.9 Anxiety disorder, unspecified; D53.9 Nutritional anemia, unspecified; I50.9 Heart failure, unspecified; L98.499 Non-pressure chronic ulcer of skin of other sites with unspecified severity; E11.65 Type 2 diabetes mellitus with hyperglycemia; E78.5 Hyperlipidemia, unspecified; M81.0 Age-related osteoporosis without current pathological fracture; Z20.822 Contact with and (suspected) exposure to COVID-19; Z82.49 Family history of ischemic heart disease and other diseases of the circulatory system; Z83.3 Family history of diabetes mellitus; Z87.11 Personal history of peptic ulcer disease; Z90.710 Acquired absence of both cervix and uterus; Z98.61 Coronary angioplasty status
CPT/HCPCS: 36415; 71045; 71250; 80048; 80053; 82948; 83605; 83880; 84145; 84484; 85025; 85027; 85610; 85730; 87040; 87426; 93005; G0378; J1170; J1650; J1815; J1956; J2405; J3490; U0003

== ENCOUNTER 2021-02-01 20:38 | Observation (INO) | payer OTHER ==
[~2021-02-01] VITALS: Ht 157.5 cm; Wt 98.0 kg
[~2021-02-01 20:38] MED LIST changes: -AMLO2.5T4 PO; -LEVO750T46 PO
[2021-02-01] MEDS ORDERED: NITROGLYCERIN 0.4 MG SL TAB SL PRN ×2 (20:45→22:45)
[2021-02-01] MEDS ORDERED: ONDANSETRON 4MG INJ IVP ONE (20:45)
[2021-02-01] MEDS ORDERED: NITROGLYCERIN 1GM OINT 1 INCH/1GM TD ONE (20:45)
[2021-02-01] MEDS ORDERED: ASPIRIN 325 MG TABLET PO ONE (20:45)
[2021-02-01 20:54] VITALS: BP 173/94
[2021-02-01 21:11] LABS: BASOPHILS % (AUTO) 0.2 % (0.0-5.0); HEMATOCRIT 40.5 % (36-48); LYMPHOCYTES % (AUTO) 7.7 % (21.0-51.0); MEAN CORPUSCULAR HEMOGLOBIN 27.2 pg (27.0-33.0); MEAN CORPUSCULAR HGB CONC 32.6 g/dL (32.0-36.0); MEAN CORPUSCULAR VOLUME 83.5 fL (79-99); MONOCYTES % (AUTO) 2.3 % (3.0-13.0); NEUTROPHILS % (AUTO) 89.1 % (40.0-77.0); PLATELET COUNT (AUTO) 277 K/uL (130-400); RED BLOOD CELL COUNT(AUTO) 4.85 MIL/uL (4.00-5.50); RED CELL DISTRIBUTION WIDTH 16.6 % (11.0-15.5); WHITE BLOOD COUNT (AUTO) 12.9 K/uL (4.8-10.8)
[2021-02-01 21:24] LABS: CREATININE 1.1 mg/dL (0.5-1.5); INR 1.03 (0.85-1.15); PROTHROMBIN TIME 11.2 SEC (9.6-11.6)
[2021-02-01 21:33] LABS: B-TYPE NATRIURETIC PEPTIDE 349 pg/mL (0-100)
[2021-02-01 21:35] LABS: ALBUMIN 4.1 g/dL (3.5-5.0); BILIRUBIN,TOTAL 0.7 mg/dL (0.2-1.0); TOTAL PROTEIN, SERUM 8.6 g/dL (6.0-8.3)
[2021-02-01] MEDS ORDERED: INSULIN HUMULIN R 100 UNIT/ML 3ML IV STA (21:46)
[2021-02-01 22:20] LABS: APPEARANCE,URINE Clear (CLEAR); BILIRUBIN,URINE Negative (NEGATIVE); COLOR,URINE Yellow (YELLOW); GLUCOSE, URINE (UA) >=1000 mg/dL (NEGATIVE); KETONES,URINE >=80 mg/dL (NEGATIVE); LEUKOCYTE ESTERASE ,URINE Negative (NEGATIVE); NITRATE,URINE Positive (NEGATIVE); OCCULT BLOOD,URINE Small (NEGATIVE); PROTEIN,URINE 300 mg/dL (NEGATIVE); UROBILINOGEN,URINE 0.2 mg/dL (0.2-1.0)
[2021-02-01 22:38] LABS: BACTERIA,URINE Moderate /HPF (None Seen); RBC,URINE 0-1 /HPF (0-1); YEAST,URINE BUDDING Few /HPF (None Seen)
[2021-02-01] MEDS ORDERED: DIPHENHYDRAMINE HCL 25 MG CAPSULE PO PRN (22:45)
[2021-02-01] MEDS ORDERED: ACETAMINOPHEN 325 MG TAB PO PRN ×2 (22:45)
[2021-02-01] MEDS ORDERED: HYDRALAZINE 20MG/ML VIAL IV PRN (22:45)
[2021-02-01] MEDS ORDERED: APAP-CODEINE 300/30MG TAB PO PRN (22:45)
[2021-02-01] MEDS ORDERED: MORPHINE 2 MG SYG IV PRN (22:45)
[2021-02-01] MEDS ORDERED: GUAIFENESIN-DM 200/20 MG 10 ML PO PRN (22:45)
[2021-02-01] MEDS ORDERED: MAG/ALUM/SIMETH 30 ML UDCUP PO PRN (22:45)
[2021-02-01] MEDS ORDERED: ONDANSETRON 4MG INJ IV PRN (22:45)
[2021-02-01] MEDS ORDERED: LACTULOSE 20 GM/30 ML UDCUP PO PRN (22:45)
[2021-02-01 23:46] LABS: CREATINE KINASE, TOTAL 59 U/L (21-232); MYOGLOBIN 76 ng/mL (10-92); TROPONIN I < 0.04 ng/mL (0.00-0.06)
[2021-02-02] VITALS (11 sets, daily range): BP systolic 79–154; BP diastolic 38–84
[2021-02-02] MEDS ORDERED: LEVOFLOXACIN 500 MG/D5W 100 ML 100 ML IV SCH (00:15)
[2021-02-02] MEDS ORDERED: LEVOFLOXACIN 500 MG/D5W 100 ML 100 ML ONE (00:45)
[2021-02-02] MEDS: NACL 0.9% 1000ML 1,000 ML IV SCH ×2 (00:55→05:53)
[2021-02-02] MEDS: NITROGLYCERIN 1GM OINT 1 INCH/1GM TD SCH ×3 (00:55→14:34)
[2021-02-02] MEDS: PROMETHAZINE HCL 25 MG/ML 1ML AMPULE IM SCH (02:45)
[2021-02-02 04:27] LABS: BASOPHILS % (AUTO) 0.2 % (0.0-5.0); HEMATOCRIT 38.2 % (36-48); LYMPHOCYTES % (AUTO) 8.1 % (21.0-51.0); MEAN CORPUSCULAR HEMOGLOBIN 26.8 pg (27.0-33.0); MEAN CORPUSCULAR HGB CONC 32.7 g/dL (32.0-36.0); MEAN CORPUSCULAR VOLUME 81.8 fL (79-99); MONOCYTES % (AUTO) 7.3 % (3.0-13.0); NEUTROPHILS % (AUTO) 83.8 % (40.0-77.0); PLATELET COUNT (AUTO) 263 K/uL (130-400); RED BLOOD CELL COUNT(AUTO) 4.67 MIL/uL (4.00-5.50); RED CELL DISTRIBUTION WIDTH 16.4 % (11.0-15.5)
[2021-02-02 04:45] LABS: ALBUMIN 3.6 g/dL (3.5-5.0); BILIRUBIN,TOTAL 0.7 mg/dL (0.2-1.0); CREATININE 1.1 mg/dL (0.5-1.5); POTASSIUM 3.8 mmol/L (3.5-5.1); TOTAL PROTEIN, SERUM 8.1 g/dL (6.0-8.3)
[2021-02-02] MEDS: METRONIDAZOLE 500MG/100ML BAG 100 ML IVPB SCH ×2 (06:11→13:32)
[2021-02-02 07:50] LABS: CREATINE KINASE, TOTAL 78 U/L (21-232); MYOGLOBIN 122 ng/mL (10-92); TROPONIN I < 0.04 ng/mL (0.00-0.06)
[2021-02-02] MEDS ORDERED: LOSARTAN 100 MG TABLET PO SCH (09:00)
[2021-02-02] MEDS ORDERED: ASPIRIN 325 MG TABLET PO SCH (09:00)
[2021-02-02] MEDS ORDERED: AMLODIPINE 5 MG TAB PO SCH (09:00)
[2021-02-02] MEDS ORDERED: LISINOPRIL 20 MG TABLET PO SCH (09:00)
[2021-02-02] MEDS ORDERED: DEXTROSE 50%-WATER 50 ML DISP.SYRIN IV PRN (09:15)
[2021-02-02] MEDS ORDERED: GLUCAGON 1MG KIT 1 MG ML IM PRN (09:15)
[2021-02-02] MEDS: SUCRALFATE 1 GM TABLET PO SCH ×3 (09:20→21:00)
[2021-02-02] MEDS: FAMOTIDINE 20MG VIAL IV SCH ×2 (09:20→21:00)
[2021-02-02] MEDS: HYDRALAZINE 25MG TABLET PO SCH ×3 (09:25→16:32)
[2021-02-02] MEDS: METFORMIN HCL 500 MG TAB.SR.24H PO SCH ×2 (09:25→17:00)
[2021-02-02] MEDS: ASPIRIN 81 MG EC TAB PO SCH (09:25)
[2021-02-02] MEDS: CLOPIDOGREL 75MG TAB PO SCH (09:26)
[2021-02-02] MEDS: CITALOPRAM 20 MG TABLET PO SCH (09:26)
[2021-02-02] MEDS: ENOXAPARIN SODIUM 40 MG/0.4 ML SYRINGE SQ SCH (10:19)
[2021-02-02] MEDS: GABAPENTIN 300 MG CAPSULE PO SCH ×3 (10:25→21:00)
[2021-02-02] MEDS: METOCLOPRAMIDE 10 MG/2 ML VIAL IVP SCH ×3 (11:14→21:00)
[2021-02-02] MEDS: INSULIN HUMULIN R 100 UNIT/ML 3ML SQ SCH ×3 (11:15→21:00)
[2021-02-02 15:07] LABS: CREATINE KINASE, TOTAL 86 U/L (21-232); MYOGLOBIN 72 ng/mL (10-92); TROPONIN I < 0.04 ng/mL (0.00-0.06)
[2021-02-02] MEDS ORDERED: 0.9%NACL 500ML 500 ML IV ONE (16:27)
[2021-02-02] MEDS: 0.9%NACL 500ML 500 ML IV SCH ×2 (16:34→17:43)
[2021-02-02] MEDS: INSULIN GLARGINE 100 UNITS/ML 10 ML VIAL SQ SCH (17:00)
[2021-02-02] MEDS ORDERED: PIP/TAZ ZOSYN 3.375G 3.375 GM VIAL IVPB SCH (17:30)
[2021-02-02] MEDS ORDERED: NACL 0.9% 1000ML 1,000 ML IV ONE (17:35)
[2021-02-02] MEDS ORDERED: ZOSYN 3.375GM+NS 50ML 50 ML IV SCH (17:45)
[2021-02-02 18:43] LABS: ABG BASE EXCESS -2.2 mmol/L (-2.0-3.0); ABG HCO3 21.8 mmol/L (21.0-28.0); ABG OXYGEN SATURATION 92.5 % (95.0-99.0); ABG PCO2 36 mmHg (32-45)
[2021-02-02 19:03] LABS: CREATININE 1.1 mg/dL (0.5-1.5)
[2021-02-02] MEDS ORDERED: MIDODRINE HCL 5 MG TABLET PO PRN (19:15)
[2021-02-02] MEDS: ATORVASTATIN 10 MG TABLET PO SCH (21:00)
[2021-02-03] VITALS (10 sets, daily range): BP systolic 107–156; BP diastolic 41–83
[2021-02-03] MEDS ORDERED: VANCOMYCIN 1G VIAL IVPB SCH (01:45)
[2021-02-03] MEDS ORDERED: CEFTRIAXONE 1G VIAL IVP SCH (01:45)
[2021-02-03] MEDS: LACTATED RINGERS 1000ML 1,000 ML IV SCH ×2 (02:11→21:30)
[2021-02-03] MEDS: PROMETHAZINE HCL 25 MG/ML 1ML AMPULE IM SCH (02:45)
[2021-02-03] MEDS ORDERED: VANCOMYCIN KIT 250 ML IV ONE (05:57)
[2021-02-03 06:00] LABS: BASOPHILS % (AUTO) 0.5 % (0.0-5.0); EOSINOPHILS % (AUTO) 2.1 % (0.0-8.0); HEMATOCRIT 37.2 % (36-48); LYMPHOCYTES % (AUTO) 16.2 % (21.0-51.0); MEAN CORPUSCULAR HEMOGLOBIN 27.3 pg (27.0-33.0); MEAN CORPUSCULAR HGB CONC 31.7 g/dL (32.0-36.0); MEAN CORPUSCULAR VOLUME 86.1 fL (79-99); MONOCYTES % (AUTO) 9.1 % (3.0-13.0); NEUTROPHILS % (AUTO) 71.6 % (40.0-77.0); PLATELET COUNT (AUTO) 229 K/uL (130-400); RED BLOOD CELL COUNT(AUTO) 4.32 MIL/uL (4.00-5.50); RED CELL DISTRIBUTION WIDTH 16.6 % (11.0-15.5); WHITE BLOOD COUNT (AUTO) 9.5 K/uL (4.8-10.8)
[2021-02-03 06:13] LABS: ALBUMIN 3.2 g/dL (3.5-5.0); BILIRUBIN,TOTAL 0.5 mg/dL (0.2-1.0); CREATININE 1.4 mg/dL (0.5-1.5); POTASSIUM 3.9 mmol/L (3.5-5.1); TOTAL PROTEIN, SERUM 6.9 g/dL (6.0-8.3)
[2021-02-03] MEDS: FAMOTIDINE 20MG VIAL IV SCH ×2 (08:35→22:20)
[2021-02-03] MEDS: METOCLOPRAMIDE 10 MG/2 ML VIAL IVP SCH ×3 (08:35→17:05)
[2021-02-03] MEDS: ASPIRIN 81 MG EC TAB PO SCH (08:35)
[2021-02-03] MEDS: METFORMIN HCL 500 MG TAB.SR.24H PO SCH ×2 (08:35→17:05)
[2021-02-03] MEDS: SUCRALFATE 1 GM TABLET PO SCH ×3 (08:35→22:23)
[2021-02-03] MEDS: INSULIN HUMULIN R 100 UNIT/ML 3ML SQ SCH ×4 (08:35→21:00)
[2021-02-03] MEDS: CITALOPRAM 20 MG TABLET PO SCH (08:36)
[2021-02-03] MEDS: ENOXAPARIN SODIUM 40 MG/0.4 ML SYRINGE SQ SCH (08:36)
[2021-02-03] MEDS: CLOPIDOGREL 75MG TAB PO SCH (08:36)
[2021-02-03] MEDS ORDERED: 0.9%NACL 250ML 250 ML IV SCH (09:00)
[2021-02-03] MEDS ORDERED: LEVO500T89 PO (15:19)
[2021-02-03] MEDS: INSULIN GLARGINE 100 UNITS/ML 10 ML VIAL SQ SCH (17:05)
[2021-02-03] MEDS: ATORVASTATIN 10 MG TABLET PO SCH (22:20)
== END 2021-02-03 21:00 | disposition home or self-care (01) ==
LOC: EDH 20:38 → EDHIP 22:33
PROVIDERS: ADMIT Internal Medicine Critical Care Medicine; ATTEND Internal Medicine Critical Care Medicine
DX: R07.89 Other chest pain (principal); N39.0 Urinary tract infection, site not specified; R11.2 Nausea with vomiting, unspecified
CPT/HCPCS: 36415 ×3; 36600; 71045 ×2; 74176; 76705; 78227; 80048; 80053 ×3; 81001; 82150; 82550 ×4; 82803; 82948 ×8; 83605; 83874 ×4; 83880 ×2; 84145; 84484 ×4; 85025 ×3; 85378; 85610; 87040 ×2; 87077; 87088; 87186; 93005 ×4; 96365; 96366 ×2; 96367 ×3; 96368; 96372 ×2; 96375 ×3; 96376 ×2; 99285; A9537; G0378 ×46; J0696; J1650 ×2; J1815 ×4; J1956; J2405 ×4; J2543; J2765 ×3; J3370; J3490 ×6; J7030; J7040; J7120; J7050

== ENCOUNTER 2021-05-20 17:38 | Emergency (ER) | payer OTHER ==
[~2021-05-20] VITALS: Ht 157.5 cm; Wt 98.0 kg
[~2021-05-20 17:38] MED LIST changes: -AEC81 PO; -CLOP75TA32 PO; +ESCI-8 PO; -ESCI20TA38 PO; +FOLI0.8C PO; -GABA300C PO; -HYDR-4153 PO; +INSU100V3 SQ; +ISOS10TA2 PO; -LISI20TA24 PO; -LOSA100T58 PO; -METF750T46 PO; +PANT40TA54 PO; -PRAV20TA4 PO; -SUCR1TAB2 PO
[2021-05-20] MEDS ORDERED: ALBUTEROL INHALER 90MCG/INH IH SCH (18:30)
[2021-05-20 18:32] LABS: BASOPHILS % (AUTO) 0.3 % (0.0-5.0); EOSINOPHILS % (AUTO) 2.1 % (0.0-8.0); HEMATOCRIT 34.1 % (36-48); LYMPHOCYTES % (AUTO) 9.4 % (21.0-51.0); MEAN CORPUSCULAR HEMOGLOBIN 27.3 pg (27.0-33.0); MEAN CORPUSCULAR HGB CONC 32.6 g/dL (32.0-36.0); MEAN CORPUSCULAR VOLUME 83.8 fL (79-99); MONOCYTES % (AUTO) 2.4 % (3.0-13.0); NEUTROPHILS % (AUTO) 85.4 % (40.0-77.0); PLATELET COUNT (AUTO) 218 K/uL (130-400); RED BLOOD CELL COUNT(AUTO) 4.07 MIL/uL (4.00-5.50); RED CELL DISTRIBUTION WIDTH 15.2 % (11.0-15.5); WHITE BLOOD COUNT (AUTO) 6.7 K/uL (4.8-10.8)
[2021-05-20 18:54] LABS: ALBUMIN 2.9 g/dL (3.5-5.0); BILIRUBIN,TOTAL 0.3 mg/dL (0.2-1.0); CREATININE 1.6 mg/dL (0.5-1.5); POTASSIUM 4.8 mmol/L (3.5-5.1); TOTAL PROTEIN, SERUM 7.4 g/dL (6.0-8.3)
[2021-05-20] MEDS ORDERED: INSULIN HUMULIN R 100 UNIT/ML 3ML IV STA (19:23)
[2021-05-20 20:22] VITALS: BP 125/70
[2021-05-20] MEDS ORDERED: INSULIN HUMULIN R 100 UNIT/ML 3ML SQ ONE (20:30)
== END 2021-05-20 21:36 | disposition home or self-care (01) ==
LOC: EDH 17:38
DX: U07.1 COVID-19 (principal); E11.65 Type 2 diabetes mellitus with hyperglycemia; N39.0 Urinary tract infection, site not specified; I10 Essential (primary) hypertension; E03.9 Hypothyroidism, unspecified; Z98.890 Other specified postprocedural states; Z88.1 Allergy status to other antibiotic agents; Z79.4 Long term (current) use of insulin; Z79.899 Other long term (current) drug therapy
CPT/HCPCS: 36415; 71045; 80053; 85025; 87635; 96372; 99284; C9803; J1815

== ENCOUNTER 2021-08-04 12:53 | Inpatient (IN) | payer OTHER ==
[~2021-08-04] VITALS: Ht 165.1 cm; Wt 99.5 kg
[2021-08-04 13:36] LABS: BASOPHILS % (AUTO) 0.5 % (0.0-5.0); EOSINOPHILS % (AUTO) 4.5 % (0.0-8.0); HEMATOCRIT 34.8 % (36-48); LYMPHOCYTES % (AUTO) 13.1 % (21.0-51.0); MEAN CORPUSCULAR HEMOGLOBIN 26.1 pg (27.0-33.0); MEAN CORPUSCULAR HGB CONC 31.6 g/dL (32.0-36.0); MEAN CORPUSCULAR VOLUME 82.7 fL (79-99); NEUTROPHILS % (AUTO) 73.6 % (40.0-77.0); PLATELET COUNT (AUTO) 222 K/uL (130-400); RED BLOOD CELL COUNT(AUTO) 4.21 MIL/uL (4.00-5.50); RED CELL DISTRIBUTION WIDTH 16.3 % (11.0-15.5); WHITE BLOOD COUNT (AUTO) 7.5 K/uL (4.8-10.8)
[2021-08-04 13:58] LABS: INR 1.01 (0.85-1.15)
[2021-08-04 13:59] LABS: B-TYPE NATRIURETIC PEPTIDE 202 pg/mL (0-100)
[2021-08-04 14:00] LABS: PARTIAL THROMBOPLASTIN TIME 27.5 SEC (26.3-35.5)
[2021-08-04 14:11] LABS: BILIRUBIN,TOTAL 0.5 mg/dL (0.2-1.0); CREATININE 1.5 mg/dL (0.5-1.5); MAGNESIUM 1.9 mg/dL (1.80-2.40); TOTAL PROTEIN, SERUM 7.2 g/dL (6.0-8.3)
[2021-08-04] MEDS ORDERED: DEXTROSE 50%-WATER 50 ML DISP.SYRIN IV PRN ×2 (15:00)
[2021-08-04] MEDS ORDERED: GLUCAGON 1MG KIT 1 MG ML IM PRN ×2 (15:00)
[2021-08-04] MEDS ORDERED: GADOTERATE MEGLUMINE 10 MMOL/20 ML VIAL IV ONE (15:42)
[2021-08-04] MEDS ORDERED: IPRATROPIUM/ALBUTEROL SULFATE 3 ML SOLUTION IH ONE (15:58)
[2021-08-04] MEDS: FUROSEMIDE 40MG VIAL IV SCH (16:15)
[2021-08-04] MEDS ORDERED: INSULIN R PO SS2 SQ SCH (16:30)
[2021-08-04] MEDS: INSULIN HUMULIN R 100 UNIT/ML 3ML SQ SCH ×2 (16:36→22:20)
[2021-08-04] MEDS: IPRATROPIUM/ALBUTEROL SULFATE 3 ML SOLUTION IH SCH ×2 (18:27→23:24)
[2021-08-04 22:00] VITALS: BP 151/82
[2021-08-05 03:57] VITALS: BP 145/74
[2021-08-05 04:29] LABS: BASOPHILS % (AUTO) 0.5 % (0.0-5.0); EOSINOPHILS % (AUTO) 5.8 % (0.0-8.0); HEMATOCRIT 32.4 % (36-48); LYMPHOCYTES % (AUTO) 21.2 % (21.0-51.0); MEAN CORPUSCULAR HGB CONC 31.2 g/dL (32.0-36.0); MEAN CORPUSCULAR VOLUME 83.5 fL (79-99); MONOCYTES % (AUTO) 13.9 % (3.0-13.0); NEUTROPHILS % (AUTO) 58.3 % (40.0-77.0); PLATELET COUNT (AUTO) 192 K/uL (130-400); RED BLOOD CELL COUNT(AUTO) 3.88 MIL/uL (4.00-5.50); RED CELL DISTRIBUTION WIDTH 16.3 % (11.0-15.5); WHITE BLOOD COUNT (AUTO) 5.9 K/uL (4.8-10.8)
[2021-08-05 04:41] LABS: CREATININE 1.2 mg/dL (0.5-1.5); MAGNESIUM 2.1 mg/dL (1.80-2.40); POTASSIUM 3.2 mmol/L (3.5-5.1)
[2021-08-05 04:52] LABS: HEMOGLOBIN A1C 11.5 % (4.0-6.0)
[2021-08-05] MEDS: INSULIN HUMULIN R 100 UNIT/ML 3ML SQ SCH ×4 (06:05→19:59)
[2021-08-05] MEDS: IPRATROPIUM/ALBUTEROL SULFATE 3 ML SOLUTION IH SCH ×4 (07:17→23:07)
[2021-08-05 08:00] VITALS: BP 143/76
[2021-08-05] MEDS ORDERED: ASPIRIN 81 MG EC TAB PO SCH ×2 (09:00)
[2021-08-05] MEDS: FUROSEMIDE 40MG VIAL IV SCH (09:51)
[2021-08-05 12:00] VITALS: BP 97/67
[2021-08-05 16:00] VITALS: BP 138/62
[2021-08-05] MEDS: ASPIRIN 81 MG EC TAB PO SCH (17:38)
[2021-08-05] MEDS: CLOPIDOGREL 75MG TAB PO SCH (17:38)
[2021-08-05] MEDS: ATORVASTATIN 20 MG TABLET PO SCH (19:52)
[2021-08-05] MEDS: METOPROLOL TARTRATE 25 MG TAB PO SCH (19:52)
[2021-08-05 20:00] VITALS: BP 136/67
[2021-08-06] VITALS: BP 130/69
[2021-08-06 04:00] VITALS: BP 117/54
[2021-08-06] MEDS: INSULIN HUMULIN R 100 UNIT/ML 3ML SQ SCH ×4 (06:14→20:23)
[2021-08-06] MEDS: IPRATROPIUM/ALBUTEROL SULFATE 3 ML SOLUTION IH SCH ×3 (06:26→18:41)
[2021-08-06 08:00] VITALS: BP 155/85
[2021-08-06] MEDS: FUROSEMIDE 40MG VIAL IV SCH (09:33)
[2021-08-06] MEDS ORDERED: REGADENOSON 0.4 MG/5 ML PF SYG IVP SCH (11:00)
[2021-08-06 12:00] VITALS: BP 129/71
[2021-08-06] MEDS: METOPROLOL TARTRATE 25 MG TAB PO SCH ×2 (13:00→20:21)
[2021-08-06] MEDS: CLOPIDOGREL 75MG TAB PO SCH (13:00)
[2021-08-06] MEDS: ASPIRIN 81 MG EC TAB PO SCH (13:00)
[2021-08-06 16:00] VITALS: BP 149/79
[2021-08-06 20:00] VITALS: BP 140/71
[2021-08-06] MEDS: ATORVASTATIN 20 MG TABLET PO SCH (20:21)
[2021-08-07] VITALS: BP 125/66
[2021-08-07] MEDS: IPRATROPIUM/ALBUTEROL SULFATE 3 ML SOLUTION IH SCH ×5 (00:25→23:12)
[2021-08-07 04:00] VITALS: BP 130/65
[2021-08-07] MEDS: INSULIN HUMULIN R 100 UNIT/ML 3ML SQ SCH ×4 (07:30→19:56)
[2021-08-07 08:00] VITALS: BP 140/77
[2021-08-07] MEDS: FUROSEMIDE 40MG VIAL IV SCH (09:59)
[2021-08-07] MEDS: ASPIRIN 81 MG EC TAB PO SCH (09:59)
[2021-08-07] MEDS: METOPROLOL TARTRATE 25 MG TAB PO SCH ×2 (09:59→19:54)
[2021-08-07] MEDS: CLOPIDOGREL 75MG TAB PO SCH (09:59)
[2021-08-07 11:26] LABS: CREATININE 1.1 mg/dL (0.5-1.5)
[2021-08-07 12:00] VITALS: BP 121/54
[2021-08-07] MEDS ORDERED: ONDANSETRON 4MG INJ IVP PRN (12:30)
[2021-08-07 18:47] VITALS: BP 138/78
[2021-08-07] MEDS: ATORVASTATIN 20 MG TABLET PO SCH (19:54)
[2021-08-07 20:00] VITALS: BP 132/77
[2021-08-08] VITALS: BP 130/75
[2021-08-08 04:00] VITALS: BP 106/58
[2021-08-08] MEDS: INSULIN HUMULIN R 100 UNIT/ML 3ML SQ SCH ×4 (06:08→21:23)
[2021-08-08] MEDS: IPRATROPIUM/ALBUTEROL SULFATE 3 ML SOLUTION IH SCH ×4 (06:54→23:30)
[2021-08-08 08:00] VITALS: BP 126/71
[2021-08-08] MEDS: METOPROLOL TARTRATE 25 MG TAB PO SCH ×2 (09:36→21:18)
[2021-08-08] MEDS: CLOPIDOGREL 75MG TAB PO SCH (09:36)
[2021-08-08] MEDS: ASPIRIN 81 MG EC TAB PO SCH (09:36)
[2021-08-08] MEDS: FUROSEMIDE 40MG VIAL IV SCH (09:36)
[2021-08-08 11:43] VITALS: BP_SYST 155; BP_SYST 181; BP_DIAS 109; BP_DIAS 91
[2021-08-08] MEDS: LACTULOSE 20 GM/30 ML UDCUP PO SCH ×2 (12:40→18:30)
[2021-08-08 16:00] VITALS: BP 150/77
[2021-08-08 20:00] VITALS: BP 118/60
[2021-08-08] MEDS ORDERED: INSULIN GLARGINE 100 UNITS/ML 10 ML VIAL SQ SCH (21:00)
[2021-08-08] MEDS: ATORVASTATIN 20 MG TABLET PO SCH (21:18)
[2021-08-09] VITALS: BP 121/63
[2021-08-09] MEDS: LACTULOSE 20 GM/30 ML UDCUP PO SCH (00:30)
[2021-08-09 04:00] VITALS: BP 139/69
[2021-08-09 04:00] LABS: HEMATOCRIT 32.6 % (36-48); MEAN CORPUSCULAR HEMOGLOBIN 25.7 pg (27.0-33.0); MEAN CORPUSCULAR HGB CONC 30.7 g/dL (32.0-36.0); MEAN CORPUSCULAR VOLUME 83.8 fL (79-99); PLATELET COUNT (AUTO) 222 K/uL (130-400); RED BLOOD CELL COUNT(AUTO) 3.89 MIL/uL (4.00-5.50); RED CELL DISTRIBUTION WIDTH 15.8 % (11.0-15.5); WHITE BLOOD COUNT (AUTO) 6.3 K/uL (4.8-10.8)
[2021-08-09 04:22] LABS: CREATININE 1.3 mg/dL (0.5-1.5); MAGNESIUM 2.1 mg/dL (1.80-2.40); POTASSIUM 4.3 mmol/L (3.5-5.1)
[2021-08-09] MEDS: IPRATROPIUM/ALBUTEROL SULFATE 3 ML SOLUTION IH SCH ×2 (06:18→11:16)
[2021-08-09] MEDS: INSULIN HUMULIN R 100 UNIT/ML 3ML SQ SCH ×3 (06:22→17:21)
[2021-08-09 08:35] VITALS: BP 122/66
[2021-08-09] MEDS ORDERED: FUROSEMIDE 40 MG TABLET PO SCH (09:00)
[2021-08-09] MEDS: METOPROLOL TARTRATE 25 MG TAB PO SCH (09:40)
[2021-08-09] MEDS: ASPIRIN 81 MG EC TAB PO SCH (09:40)
[2021-08-09] MEDS: CLOPIDOGREL 75MG TAB PO SCH (09:41)
[2021-08-09 11:38] VITALS: BP 155/96
[2021-08-09 17:09] VITALS: BP 157/88
[2021-08-09] MEDS ORDERED: MAGNESIUM CITRATE 296 ML SOLUTION PO ONE (17:50)
== END 2021-08-09 18:03 | disposition home or self-care (01) | DRG 302 ==
LOC: EDH 12:53 → EDHIP 14:38 → OBSVTOIN 14:38 → 4DH 21:37
PROVIDERS: ADMIT Internal Medicine Infectious Disease; ATTEND Internal Medicine Infectious Disease
DX: I25.119 Atherosclerotic heart disease of native coronary artery with unspecified angina pectoris (principal); I50.33 Acute on chronic diastolic (congestive) heart failure; I11.0 Hypertensive heart disease with heart failure; E78.5 Hyperlipidemia, unspecified; E11.65 Type 2 diabetes mellitus with hyperglycemia; M47.9 Spondylosis, unspecified; Z20.822 Contact with and (suspected) exposure to COVID-19; F32.A Depression, unspecified; G89.29 Other chronic pain; Z60.2 Problems related to living alone; E66.9 Obesity, unspecified; N28.9 Disorder of kidney and ureter, unspecified; Z68.36 Body mass index [BMI] 36.0-36.9, adult; I25.10 Atherosclerotic heart disease of native coronary artery without angina pectoris; K59.00 Constipation, unspecified; E78.00 Pure hypercholesterolemia, unspecified; Z90.710 Acquired absence of both cervix and uterus; Z88.8 Allergy status to other drugs, medicaments and biological substances; Z95.5 Presence of coronary angioplasty implant and graft; Z91.19 Patient's noncompliance with other medical treatment and regimen; Z83.3 Family history of diabetes mellitus
CPT/HCPCS: 36415; 70450; 70551; 71045; 78452; 80048; 80053; 82550; 82948; 83036; 83721; 83735; 83874; 83880; 84484; 85025; 85027; 85610; 85730; 87635; 93005; 93017; 94640; 94664; 96374; 97039; A9500; G0378; J1815; J1940; J2405; J2785

== ENCOUNTER 2021-09-20 12:50 | Emergency (ER) | payer OTHER ==
[2021-09-20 13:16] LABS: BASOPHILS % (AUTO) 0.9 % (0.0-5.0); EOSINOPHILS % (AUTO) 2.6 % (0.0-8.0); HEMATOCRIT 33.6 % (36-48); MEAN CORPUSCULAR HEMOGLOBIN 26.3 pg (27.0-33.0); MEAN CORPUSCULAR HGB CONC 32.1 g/dL (32.0-36.0); MONOCYTES % (AUTO) 8.2 % (3.0-13.0); NEUTROPHILS % (AUTO) 69.9 % (40.0-77.0); PLATELET COUNT (AUTO) 252 K/uL (130-400); RED CELL DISTRIBUTION WIDTH 15.9 % (11.0-15.5)
[2021-09-20 13:19] LABS: APPEARANCE,URINE Cloudy (CLEAR); BILIRUBIN,URINE Negative (NEGATIVE); COLOR,URINE Yellow (YELLOW); GLUCOSE, URINE (UA) >=1000 mg/dL (NEGATIVE); KETONES,URINE Trace mg/dL (NEGATIVE); LEUKOCYTE ESTERASE ,URINE Trace (NEGATIVE); NITRATE,URINE Positive (NEGATIVE); OCCULT BLOOD,URINE Small (NEGATIVE); PROTEIN,URINE 300 mg/dL (NEGATIVE)
[2021-09-20 13:29] LABS: BILIRUBIN,TOTAL 0.3 mg/dL (0.2-1.0); CREATININE 1.3 mg/dL (0.5-1.5); POTASSIUM 4.2 mmol/L (3.5-5.1); TOTAL PROTEIN, SERUM 7.1 g/dL (6.0-8.3)
[2021-09-20 13:48] LABS: BACTERIA,URINE Many /HPF (None Seen); RBC,URINE 0-1 /HPF (0-1); SQUAMOUS EPITHELIAL CELL,UR 0-2 /HPF (0-2)
[2021-09-20 14:12] LABS: B-TYPE NATRIURETIC PEPTIDE 315 pg/mL (0-100)
[2021-09-20] MEDS ORDERED: FUROSEMIDE 20MG VIAL IV ONE (15:30)
[2021-09-20] MEDS ORDERED: INSULIN HUMULIN R 100 UNIT/ML 3ML IV ONE (16:30)
[2021-09-20] MEDS ORDERED: SULF1TAB42 PO (17:24)
[2021-09-20 17:32] VITALS: BP 135/77
== END 2021-09-20 17:35 | disposition home or self-care (01) ==
LOC: EDH 12:50
DX: E11.65 Type 2 diabetes mellitus with hyperglycemia (principal); N39.0 Urinary tract infection, site not specified; J81.1 Chronic pulmonary edema; Z20.822 Contact with and (suspected) exposure to COVID-19; E78.00 Pure hypercholesterolemia, unspecified; I10 Essential (primary) hypertension; Z79.4 Long term (current) use of insulin; Z79.899 Other long term (current) drug therapy; Z95.5 Presence of coronary angioplasty implant and graft; Z88.0 Allergy status to penicillin
CPT/HCPCS: 36415; 71045; 80053; 81001; 82550; 83880; 84484; 85025; 87077; 87088; 87186; 87635; 93005 ×2; 96374; 96375; 99285; C9803; J1815; J1940